=== PATIENT | male | born 1975 | race African-American/Black ===

== ENCOUNTER 2018-10-31 00:35 | Emergency (ER) | payer OTHER ==
[2018-10-31 01:23] VITALS: BP 111/76; PULSE 88; TEMP 98.6; BMI 28.0
[2018-10-31 01:44] LABS: URINE APPEARANCE CLEAR; URINE BILIRUBIN NEGATIVE (<2.0 mg/dL); URINE COLOR STRAW; URINE GLUCOSE (UA) NEGATIVE (NEGATIVE); URINE KETONE NEGATIVE (NEGATIVE); URINE LEUK ESTERASE 2+ (NEGATIVE); URINE NITRITE NEGATIVE (NEGATIVE); URINE PROTEIN NEGATIVE (NEGATIVE); URINE UROBILINOGEN NEGATIVE mg/dL (0.2-1.0)
[2018-10-31 01:50] LABS: URINE BACTERIA RARE /hpf (NONE SEEN)
--- NOTE | 2018-10-31 01:55 | PDOC ---
History of Present Illness - General Chief Complaint: Urinary Problem Stated Complaint: UTI History Source: Patient - History of Present Illness Initial Comments: 10/31/18 02:29 43 year old uncircumcised male c/o penile discharge, frequency of urinary and dysuria x 2 days. denies fever/ chills. denies new partner / exposure to STIs. 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 patient usually takes supplements and spend 4 hours in the [facility] History of UTI Past History - Past Medical History Allergies/Adverse Reactions: Allergies Allergy/AdvReac Type Severity Reaction Status Date / Time No Known Allergies Allergy Verified 10/31/18 01:16 Home Medications: Ambulatory Orders levoFLOXacin [Levaquin -] 500 mg PO DAILY #5 tablet 10/31/18 COPD: No - Immunization History Immunization Up to Date: Yes - Suicide/Smoking/Psychosocial Hx Smoking History: Never smoked Have you smoked in the past 12 months: No Information on smoking cessation initiated: No Hx Alcohol Use: No Drug/Substance Use Hx: No Review of Systems - Review of Systems Able to Perform ROS?: Yes Is the patient limited Romansh proficient: No Constitutional: No: Symptoms Reported, See HPI, Chills, Diaphoresis, Fever, Loss of Appetite, Malaise, Night Sweats, Weakness, Weight Stable, Unintentional Wgt. Loss, Unexplained wgt Loss, Other ABD/GI: No: Symptoms Reported, See HPI, Abdominal Distended, Abd. Pain w/ defecation, Blood Streaked Bowels, Constipated, Diarrhea, Difficulty Swallowing , Nausea, Poor Appetite, Poor Fluid Intake, Rectal Bleeding, Vomiting, Indigestion, Abdominal cramping, Tarry Stools, Other : Yes: Dysuria (penile discharge), Frequency. No: Symptoms Reported, See HPI , Burning, Discharge, Flank Pain, Hematuria, Incontinence, Pain, Urgency, Testicular Mass, Testicular Swelling, Lesions, Testicular Pain, Other Musculoskeletal: No: Symptoms Reported, See HPI, Back Pain, Gout, Joint Pain, Joint Swelling, Muscle Pain, Muscle Weakness, Neck Pain, Joint Stiffness, Other *Physical Exam - Vital Signs Last Vital Signs Temp Pulse Resp BP Pulse Ox 98.6 F 88 20 111/76 99 10/31/18 01:17 10/31/18 01:17 10/31/18 01:17 10/31/18 01:17 10/31/18 01:17 - Physical Exam General Appearance: Yes: Appropriately Dressed Respiratory/Chest: positive: Lungs Clear, Normal Breath Sounds Cardiovascular: positive: Regular Rhythm, Regular Rate Gastrointestinal/Abdominal: positive: Normal Bowel Sounds, Soft. negative: Tender Male Genitalia: positive: normal genitalia, normal prostate (no bogginess), discharge. negative: testicular tenderness Rectal Exam: positive: NL Prostate, normal rectal tone Musculoskeletal: positive: Normal Inspection. negative: CVA Tenderness Extremity: positive: Normal Capillary Refill, Normal Inspection, Normal Range of Motion Integumentary: positive: Normal Color, Dry, Warm Neurologic: positive: Fully Oriented, Alert Moderate Sedation - Procedure Monitoring Vital Signs: Procedure Monitoring Vital Signs Temperature 98.6 F 10/31/18 01:17 Pulse Rate 88 10/31/18 01:17 Respiratory Rate 20 10/31/18 01:17 Blood Pressure 111/76 10/31/18 01:17 O2 Sat by Pulse Oximetry (%) 99 10/31/18 01:17 ED Treatment Course - ADDITIONAL ORDERS Additional order review: Laboratory Results 10/31/18 01:23 Urine Color Straw Urine Appearance Clear Urine pH 6.0 Ur Specific [place] 1.005 L Urine Protein Negative Urine Glucose (UA) Negative Urine Ketones Negative Urine Blood 3+ H Urine Nitrite Negative Urine Bilirubin Negative Urine Urobilinogen Negative Ur Leukocyte Esterase 2+ H Urine WBC (Auto) 29 Urine RBC (Auto) 1 Urine Bacteria Rare Progress Note - Progress Note Progress Note: A: uti P: Ua ucx gc chlamydia : pending. patient refused treatment until its resulted antibiotics. outpatient urology follow up *DC/Admit/Observation/Transfer Diagnosis at time of Disposition: Urinary tract infection Qualifiers: Urinary tract infection type: acute cystitis Hematuria presence: with hematuria Qualified Code(s): N30.01 - Acute cystitis with hematuria - Discharge Dispostion Disposition: HOME - Prescriptions Prescriptions: levoFLOXacin [Levaquin -] 500 mg PO DAILY #5 tablet - Referrals Referrals: Jovita Cheema MD [Primary Care Provider] - Donal Reyes MD [Staff Physician] - Call tomorrow - Patient Instructions Printed Discharge Instructions: Urinary Tract Infection Additional Instructions: drink plenty of fluids take levaquin as prescribed follow up with a urologist as soon as possible - Post Discharge Activity Forms/Work/School Notes: Back to Work
--- NOTE | 2018-10-31 02:26 | PDOC ---
*Physical Exam - Vital Signs Last Vital Signs Temp Pulse Resp BP Pulse Ox 98.6 F 88 20 111/76 99 10/31/18 01:17 10/31/18 01:17 10/31/18 01:17 10/31/18 01:17 10/31/18 01:17 ED Treatment Course - ADDITIONAL ORDERS Additional order review: Laboratory Results 10/31/18 01:23 Urine Color Straw Urine Appearance Clear Urine pH 6.0 Ur Specific [place] 1.005 L Urine Protein Negative Urine Glucose (UA) Negative Urine Ketones Negative Urine Blood 3+ H Urine Nitrite Negative Urine Bilirubin Negative Urine Urobilinogen Negative Ur Leukocyte Esterase 2+ H Urine WBC (Auto) 29 Urine RBC (Auto) 1 Urine Bacteria Rare Medical Decision Making - Medical Decision Making 10/31/18 02:24 43 yo M presenting to the ER with a complaint of urinary frequency and urgency (+) discharge States he is sexually active only with his No fevers or chills No testicular pain 10/31/18 02:25 Laboratory Tests 10/31/18 01:23 Urine Blood 3+ H Urine Nitrite Negative Ur Leukocyte Esterase 2+ H Urine WBC (Auto) 29 Urine RBC (Auto) 1 Prostate examination Will discharge on Levaquin Pt will need to follow up with PMD *DC/Admit/Observation/Transfer - Referrals Referrals: Jovita Cheema MD [Primary Care Provider] - - Patient Instructions - Post Discharge Activity
== END 2018-10-31 02:37 | disposition home or self-care (01) ==
LOC: JER 00:35
DX: N30.01 Acute cystitis with hematuria (principal)
CPT/HCPCS: 36415; 81003; 81015; 87086; 87186; 87491; 87591; 99281-25

== ENCOUNTER 2018-11-26 00:36 | Emergency (ER) | payer OTHER ==
[2018-11-26 02:17] VITALS: BP 140/79; PULSE 71; TEMP 98.1; BMI 28.0
--- NOTE | 2018-11-26 02:51 | PDOC ---
*Physical Exam - Vital Signs Last Vital Signs Temp Pulse Resp BP Pulse Ox 98.1 F 71 16 140/79 100 11/26/18 00:36 11/26/18 00:36 11/26/18 00:36 11/26/18 00:36 11/26/18 00:36 Medical Decision Making - Medical Decision Making 11/26/18 02:50 Patient seen by the advanced practice provider under my direct supervision. Ancillary testing reviewed as necessary. I agree with plan as outlined by the advanced practice provider. *DC/Admit/Observation/Transfer Diagnosis at time of Disposition: Rash - Discharge Dispostion Condition at time of disposition: Fair - Referrals Referrals: Sudarshan Murray MD [Primary Care Provider] - - Patient Instructions - Post Discharge Activity
--- NOTE | 2018-11-26 03:20 | PDOC ---
History of Present Illness - General Chief Complaint: Wound Stated Complaint: SKIN PROBLEM Time Seen by Provider: 11/26/18 02:42 History Source: Patient Exam Limitations: No Limitations Past History - Past Medical History Allergies/Adverse Reactions: Allergies Allergy/AdvReac Type Severity Reaction Status Date / Time No Known Allergies Allergy Verified 10/31/18 01:16 Home Medications: Ambulatory Orders levoFLOXacin [Levaquin -] 500 mg PO DAILY #5 tablet 10/31/18 COPD: No - Immunization History Immunization Up to Date: Yes - Suicide/Smoking/Psychosocial Hx Smoking History: Never smoked Have you smoked in the past 12 months: No Information on smoking cessation initiated: No Hx Alcohol Use: No Drug/Substance Use Hx: No *Physical Exam - Vital Signs Last Vital Signs Temp Pulse Resp BP Pulse Ox 98.1 F 71 16 140/79 100 11/26/18 00:36 11/26/18 00:36 11/26/18 00:36 11/26/18 00:36 11/26/18 00:36 - Physical Exam General Appearance: No: Apparent Distress Respiratory/Chest: positive: Lungs Clear, Normal Breath Sounds. negative: Respiratory Distress Cardiovascular: positive: Regular Rhythm, Regular Rate, S1, S2. negative: Murmur Gastrointestinal/Abdominal: positive: Normal Bowel Sounds, Soft. negative: Tender, Distended, Guarding, Rebound Male Genitalia: positive: normal genitalia. negative: discharge, testicular tenderness Integumentary: positive: Other (Slight skin peeling along L inner thigh, no erythema, no lesions). negative: Swelling, Ecchymosis, Bruising Moderate Sedation - Procedure Monitoring Vital Signs: Procedure Monitoring Vital Signs Temperature 98.1 F 11/26/18 00:36 Pulse Rate 71 11/26/18 00:36 Respiratory Rate 16 11/26/18 00:36 Blood Pressure 140/79 11/26/18 00:36 O2 Sat by Pulse Oximetry (%) 100 11/26/18 00:36 Medical Decision Making - Medical Decision Making 41 y/o M with no sig pmh presents with rash along groin x 1 month. Was seen last month for UTI and discharged on Levaquin. After taking medication, noted peeling to his penis. Saw his PCP who prescribed an antifungal cream which did not seem to help. Noticed the skin peeling was spreading along inner thigh. Saw PCP again who gave him Nystatin powder which helped and states it improved in 1 week, but then in few days, noticed some feeling again to inner thigh. Resumed use of Nystatin powder 2 days ago; is concerned as he does not want to keep relying on the Nystatin powder. Denies fever, sob, cp, abd pain, n/v, testicular pain, penile pain, unusual penile discharge. PE unremarkable Advised to use the Nystatin powder for now; advised f/u with his PCP 11/26/18 03:17 *DC/Admit/Observation/Transfer Diagnosis at time of Disposition: Rash - Discharge Dispostion Disposition: HOME Condition at time of disposition: Stable Decision to Admit order: No - Referrals Referrals: Sudarshan Murray MD [Primary Care Provider] - 2 Days - Patient Instructions Additional Instructions: Thank you for choosing [facility]. It was a pleasure taking care of you. Continue using the Nystatin powder Follow-up with your doctor in 2-3 days Consider seeing a substance abuse services director Return to the Emergency Department if your symptoms worsen or persist or have other concerning symptoms. - Post Discharge Activity
== END 2018-11-26 04:24 | disposition home or self-care (01) ==
LOC: EDBD 00:36 → JER 00:36
DX: R21 Rash and other nonspecific skin eruption (principal)
CPT/HCPCS: 99281-25

== ENCOUNTER 2020-12-03 17:14 | Emergency (ER) | payer OTHER ==
[2020-12-03 17:39] VITALS: BP 134/63; PULSE 62; TEMP 98.4; BMI 28.3
[2020-12-03] MEDS ORDERED: KETOROLAC TROMETHAMINE 30 MG/1 ML VIAL IM ONE (18:07)
[2020-12-03] MEDS ORDERED: KETOROLAC TROMETHAMINE 30 MG/1 ML VIAL ONE (18:10)
== END 2020-12-03 18:31 | disposition home or self-care (01) ==
LOC: JERFT 17:14
PROC: 3E023GC Introduction of Other Therapeutic Substance into Muscle, Percutaneous Approach (ICD-10-PCS; principal; 2020-12-03)
DX: M54.5 Low back pain (principal); M25.561 Pain in right knee
CPT/HCPCS: 99284-25